=== PATIENT | male | born 1945 | race African-American/Black ===

== ENCOUNTER 2016-12-10 09:49 | Emergency (ER) | payer OTHER ==
[~2016-12-10] VITALS: Ht 180.3 cm; Wt 90.0 kg
[2016-12-10] MEDS ORDERED: METF500T4 PO (09:53)
[2016-12-10] MEDS ORDERED: SODIUM CHLORIDE 0.9% 500 ML IV ONE (09:58)
[2016-12-10 10:15] LABS: BASOPHILS % 0.4 % (0.0-2.0); EOSINOPHILS % 0.3 % (0.0-5.0); HEMATOCRIT. 31.4 % (42.0-52.0); HEMOGLOBIN. 10.4 g/dL (14.0-18.0); LYMPHOCYTES % 12.7 % (20.0-50.0); MEAN CORPUSCULAR HEMOGLOBIN 27.1 pg (28.0-32.0); MEAN CORPUSCULAR VOLUME 81.9 fL (80.0-94.0); MEAN PLATELET VOLUME 8.7 fl (7.4-10.4); MONOCYTES % 7.9 % (2.0-8.0); NEUTROPHILS % 78.7 % (40.0-76.0); PLATELET 157 x1000/uL (130-400); RED BLOOD CELL COUNT 3.84 mill/uL (4.7-6.1); RED CELL DISTRIBUTION WIDTH 15.3 % (11.6-14.6)
[2016-12-10] MEDS ORDERED: OCTREOTIDE 1,000 MCG in SODIUM CHLORIDE 0.9% 100 ML IV ONE (10:15)
[2016-12-10] MEDS ORDERED: OCTREOTIDE ACETATE 50 MCG/ML 1ML IV ONE (10:15)
[2016-12-10] MEDS ORDERED: DEXTROSE 50% WATER 50ML SYRINGE IV ONE (10:15)
[2016-12-10 10:24] LABS: INR 1.2; PARTIAL THROMBOPLASTIN TIME 26.6 sec (24.0-34.0); PROTHROMBIN TIME 12.3 sec
[2016-12-10 10:31] LABS: CARBON DIOXIDE 23 mEq/L (21-32); CHLORIDE 112 mEq/L (98-107); CREATINE KINASE 242 IU/L (39-308)
[2016-12-10 10:32] LABS: TROPONIN I 0.03 ng/mL (0.00-0.04)
[2016-12-10] MEDS ORDERED: OCTREOTIDE 1,000 MCG in SODIUM CHLORIDE 0.9% 100 ML IV SCH (10:45)
[2016-12-10 12:56] VITALS: BP 188/84
[2016-12-10] MEDS ORDERED: CLONIDINE 0.1MG TABLET PO ONE (13:30)
== END 2016-12-10 13:32 | disposition short-term general hospital (02) ==
LOC: ER 10:17
DX: E11.649 Type 2 diabetes mellitus with hypoglycemia without coma (principal); G93.40 Encephalopathy, unspecified; D64.9 Anemia, unspecified; I10 Essential (primary) hypertension
CPT/HCPCS: 36415; 71010; 80053; 82550; 82553; 82962; 83690; 83880; 84484; 85025; 85610; 85730; 93005; 96361; 96365; 96366; 96375; 99291; G0482; J2354; J7040; J7050